=== PATIENT | female | born 1955 | race Caucasian/White ===

== ENCOUNTER 2017-05-02 09:08 | Day surgery (SDC) | payer OTHER ==
[~2017-05-02] VITALS: Ht 165.1 cm; Wt 108.9 kg
[~2017-05-02 09:08] MED LIST: ACID CONTROL150 MG PO; ALBUTEROL SULF8.5 GM IH; ALEVE220 MG PO; ASPIR 8181 M1 PO; AUGMENTIN875 MG PO; BACTRIM,SEPT1 TABLET PO; CALCIO DEL MAR500 MG PO; CALCIUM 600 +1 EAC9 PO; ELAVIL10 MG PO; ELAVIL50 MG PO; FEMARA2.5 MG PO; GABAPENTIN300 MG PO; LETROZOLE2.5 MG PO; LEVOTHYROXINE112 MCG PO; LO-DOSE ASPIRIN81 M1 PO; OXYBUTYNIN CHLOR5 MG PO; PREVACID15 MG PO; PRILOSEC20 MG PO; PRILOSEC40 MG PO; PRINIVIL10 MG PO; SINGULAIR10 MG PO; SYNTHROID137 MCG PO; SYNTHROID150 MCG PO; TRAMADOL HCL50 MG PO; TYLENOL WITH C1 EACH PO; VITAMIN B-122500 MCG PO; VITAMIN D32000 UNIT PO; ZANTAC150 M1 PO; ZANTAC150 MG PO
[2017-05-08] MEDS ORDERED: STOOL SOFTENER100 MG PO (14:58)
[2017-05-08] MEDS ORDERED: KEFLEX500 MG PO (14:59)
== END 2017-05-02 10:55 | disposition home or self-care (01) ==
LOC: PAIN 09:08 → SDC 13:00
DX: M47.26 Other spondylosis with radiculopathy, lumbar region (principal); M51.16 Intervertebral disc disorders with radiculopathy, lumbar region; M16.0 Bilateral primary osteoarthritis of hip; I10 Essential (primary) hypertension; Z85.3 Personal history of malignant neoplasm of breast; M54.5 Low back pain; Z87.891 Personal history of nicotine dependence; Z79.82 Long term (current) use of aspirin; Z79.891 Long term (current) use of opiate analgesic; Z80.1 Family history of malignant neoplasm of trachea, bronchus and lung; Z82.49 Family history of ischemic heart disease and other diseases of the circulatory system
CPT/HCPCS: J1030; J2250; J3010; S0020

== ENCOUNTER 2017-06-27 07:22 | Day surgery (SDC) | payer OTHER ==
[~2017-06-27] VITALS: Ht 165.1 cm; Wt 108.9 kg
[~2017-06-27 07:22] MED LIST changes: +KEFLEX500 MG PO; +STOOL SOFTENER100 MG PO
== END 2017-06-27 09:30 | disposition home or self-care (01) ==
LOC: PAIN 07:22
DX: M47.26 Other spondylosis with radiculopathy, lumbar region (principal); M51.16 Intervertebral disc disorders with radiculopathy, lumbar region; M79.1 Myalgia; I10 Essential (primary) hypertension; E03.9 Hypothyroidism, unspecified; E66.9 Obesity, unspecified; Z68.39 Body mass index [BMI] 39.0-39.9, adult; Z85.3 Personal history of malignant neoplasm of breast; Z87.891 Personal history of nicotine dependence; Z79.82 Long term (current) use of aspirin; Z79.891 Long term (current) use of opiate analgesic
CPT/HCPCS: J1030; J2250; J3010; S0020

== ENCOUNTER 2017-08-12 10:31 | Emergency (ER) | payer OTHER ==
[~2017-08-12] VITALS: Ht 167.6 cm; Wt 109.6 kg
[2017-08-12 12:28] VITALS: BP 108/77
== END 2017-08-12 12:29 | disposition home or self-care (01) ==
LOC: EME 10:31
PROC: 0H9QXZZ Drainage of Finger Nail, External Approach (ICD-10-PCS; principal; 2017-08-12)
DX: S60.132A Contusion of left middle finger with damage to nail, initial encounter (principal); W23.0XXA Caught, crushed, jammed, or pinched between moving objects, initial encounter; I10 Essential (primary) hypertension; Z79.82 Long term (current) use of aspirin
CPT/HCPCS: 73130; 99281; 99283

== ENCOUNTER 2018-03-21 07:48 | Day surgery (SDC) | payer OTHER ==
[~2018-03-21] VITALS: Ht 162.6 cm; Wt 107.9 kg
[~2018-03-21 07:48] MED LIST changes: +EFFEXOR37.5 MG PO; +LEVO-T112 MCG PO
[2018-03-21 08:52] VITALS: BP 121/78
[2018-03-21 15:30] VITALS: BP 114/69
[2018-03-21 16:35] VITALS: BP 129/61
== END 2018-03-21 17:45 | disposition home or self-care (01) ==
LOC: SDC 07:48
DX: M19.072 Primary osteoarthritis, left ankle and foot (principal); M25.572 Pain in left ankle and joints of left foot; M21.612 Bunion of left foot; M67.02 Short Achilles tendon (acquired), left ankle; M21.6X2 Other acquired deformities of left foot; I10 Essential (primary) hypertension; E03.9 Hypothyroidism, unspecified; K21.9 Gastro-esophageal reflux disease without esophagitis; Z79.82 Long term (current) use of aspirin
CPT/HCPCS: 73630; 76000; C1713; J0690; J1100; J2250; J2405; J2795; J3010; J3475; S0020